=== PATIENT | female | born 1990 | race Caucasian/White ===

== ENCOUNTER 2021-02-10 12:55 | Emergency (ER) | payer OTHER ==
[~2021-02-10] VITALS: Ht 167.6 cm; Wt 69.8 kg
[2021-02-10] MEDS ORDERED: LIDOCAINE 1% Multi-Dose 20 ML VIAL. IJ ONE (13:30)
[2021-02-10 13:33] VITALS: BP 112/76
--- NOTE | 2021-02-10 13:40 | PHYS DOC ---
Adult General Chief Complaint Chief Complaint: LACERATION/AVULSION HPI HPI Patient is a 30-year-old female patient presenting to the ED today with right index finger laceration that occurred a couple minutes prior to coming to the ED. Patient states she accidentally cut herself with a can, patient is right handed (SARAH BEARD APRN) Review of Systems Review of Systems Constitutional: Denies fever or chills [] Musculoskeletal: Denies back pain or joint pain [] Integument: Reports right index finger laceration Neurologic: Denies headache, focal weakness or sensory changes [] All other systems were reviewed and found to be within normal limits, except as documented in this note. (SARAH BEARD APRN) Current Medications Current Medications Current Medications Medications (Trade) Dose Ordered Sig/Zita Start Time Stop Time Status Last Admin Dose Admin Lidocaine HCl 20 ml 1X ONCE 02/10/21 13:30 02/10/21 13:31 UNV (SARAH BEARD APRN) Physical Exam Physical Exam Constitutional: Well developed, well nourished, no acute distress, non-toxic appearance. [] Skin: Right index finger ventral aspect at the MIP joint with a laceration enid roximately 2 cm long. There is no tendon involvement. Patient able to flex and extend the finger at the MIP, PIP and DIP joint, adequate reduce sensation to the right +2 right radial pulse. Cap refill less than 2 Back: No tenderness, no CVA tenderness. [] Extremities: No tenderness, no cyanosis, no clubbing, ROM intact, no edema. [] Neurologic: Alert and oriented X 3, normal motor function, normal sensory function, no focal deficits noted. [] Psychologic: Affect normal, judgement normal, mood normal. [] (SARAH BEARD APRN) EKG EKG [] (SARAH BEARD APRN) Radiology/Procedures Radiology/Procedures Laceration/Wound Repair Wound Location: Right index finger Wound's Depth, Shape: Horizontal Wound Length (cm): Approximately 2 cm Wound Explored: clean Irrigated w/ Saline (ccs): 20 Betadine Prep?: Yes Anesthesia: 1% of lidocaine Volume Anesthetic (ccs): 2 cc Wound Repaired With: Ethilon Suture Size/Type: 5.0 Number of Sutures: 5 Progress :wound was covered with non stick dressing (SARAH BEARD APRN) Heart Score C/O Chest Pain: N/A Risk Factors: Risk Factors: DM, Current or recent (<one month) smoker, HTN, HLP, family history of CAD, obesity. Risk Scores: Risk Factors: DM, Current or recent (<one month) smoker, HTN, HLP, family history of CAD, obesity. (SARAH BEARD APRN) Course & Med Decision Making Course & Med Decision Making Pertinent Labs and Imaging studies reviewed. (See chart for details) This is a 30-year-old male patient presenting to the ED today with right index finger laceration that was closed by me as noted in procedures, tetanus is up-to-date. Wound care instructions and return precautions provided (SARAH BEARD APRN) Dragon Disclaimer Dragon Disclaimer This electronic medical record was generated, in whole or in part, using a voice recognition dictation system. (SARAH BEARD APRN) Attending Co-Sign The patient was seen and interviewed as well as examined at the bedside. The chart was reviewed. The case was discussed. Agree with the plan of care. (BRIAN OROZCO DO) Departure Departure: Impression: Primary Impression: Finger laceration Disposition: 01 HOME / SELF CARE / HOMELESS Condition: STABLE Referrals: PCP,UNKNOWN (PCP) Follow-up with the emergency room or your own doctor in 7 days for stitches to be removed Patient Instructions: Fingertip Laceration Additional Instructions: You have right index finger laceration that was closed with stitches. Keep the area clean and dry. You can remove the dressing in the next 24 hours if the are is not bleeding or draining. Monitor the area for any signs of infection including but not limited to increased redness, warmth, yellow drainage from the area and return to the ED. Follow-up with your doctor or the emergency room in 7 days for stitches to be removed Problem Qualifiers Primary Impression: Finger laceration Encounter type: initial encounter Finger: index finger Damage to nail status: without damage Foreign body presence: without foreign body Laterality: right Qualified Codes: S61.210A - Laceration without foreign body of right index finger without damage to nail, initial encounter SARAH BEARD APRN Feb 10, 2021 13:40 BRIAN OROZCO DO Feb 12, 2021 12:56
== END 2021-02-10 14:40 | disposition home or self-care (01) ==
LOC: ER 12:55
DX: S61.210A Laceration without foreign body of right index finger without damage to nail, initial encounter (principal); W26.8XXA Contact with other sharp object(s), not elsewhere classified, initial encounter; Y93.89 Activity, other specified; Y92.89 Other specified places as the place of occurrence of the external cause; Y99.8 Other external cause status
CPT/HCPCS: 12001; 99282